=== PATIENT | male | born 1990 | race Caucasian/White ===

== ENCOUNTER → 2017-01-06 | Outpatient (REF) | LOC: M SMT 13:09 | PROVIDERS: ATTEND Internal Medicine | DX: Z00.00 Encounter for general adult medical examination without abnormal findings (principal) ==

== ENCOUNTER → 2017-01-07 | Outpatient (REF) ==
--- NOTE | 2017-01-07 17:00 | REP ---
Clinical: Pain. Technique: AP, lateral, bilateral oblique views of the right foot. Findings: Lateral view best demonstrates severe pes planus with underlying soft tissue swelling. No acute fracture or dislocation. Impression: Marked pes planus with soft tissue swelling. Signed by Kenneth Helms MD 01/07/2017 04:52 P
--- NOTE | 2017-01-07 17:05 | REP ---
Clinical: Pain and disability. Comparison: 08/03/2005 Technique: AP, lateral, coned-down views. Findings: Alignment and lordosis maintained. No acute fracture / compression injury or subluxation is appreciated. Spina bifida occulta at S1 noted and represents normal variant. Impression: Essentially normal examination. Congenital spina bifida occulta at S1. Signed by Kenneth Helms MD 01/07/2017 04:56 P
== END ==
LOC: M SMT 13:22
PROVIDERS: ATTEND Internal Medicine
DX: Z02.71 Encounter for disability determination (principal)

== ENCOUNTER → 2017-10-04 | Outpatient (CLI) | payer OTHER ==
[2017-10-04 17:16] LABS: BASO # 0.1 10^3/uL (0.0-0.2); BASO % 0.9 % (0.0-1.0); EOS # 0.6 10^3/uL (0.0-0.50); IMMATURE GRANULOCYTE % 0.7 % (0-0); LYMPH # 2.5 10^3/uL (1.5-6.5); LYMPH % 25.4 % (24.0-44.0); MEAN CORPUSCULAR HEMOGLOBIN 28.9 pg (27.0-33.0); MEAN CORPUSCULAR HGB CONC 33.3 g/dl (32.0-36.5); MONO # 0.7 10^3/uL (0.0-0.8); MONO % 7.7 % (0.0-5.0); NEUTROPHILS # 5.7 10^3/uL (1.8-7.7); NEUTROPHILS % 59.3 % (36.0-66.0); PLATELET COUNT, AUTOMATED 260 10^3/uL (150-450); RED CELL DISTRIBUTION WIDTH 12.8 % (11.5-14.5); WHITE BLOOD COUNT 9.7 10^3/uL (4.0-10.0)
[2017-10-04 17:35] LABS: FREE T4 1.18 NG/DL (0.76-1.46)
== END ==
LOC: M WUC 15:16
PROVIDERS: ATTEND Emergency Medicine
DX: J30.9 Allergic rhinitis, unspecified (principal); E03.9 Hypothyroidism, unspecified

== ENCOUNTER 2018-01-27 08:47 | Emergency (ER) | payer OTHER | END 2018-01-27 09:47 | disposition home or self-care (01) | LOC: M ED 08:47 | DX: Z04.1 Encounter for examination and observation following transport accident (principal); V39 Occupant of three-wheeled motor vehicle injured in other and unspecified transport accidents; Y92.410 Unspecified street and highway as the place of occurrence of the external cause; E03.9 Hypothyroidism, unspecified; Z79.899 Other long term (current) drug therapy; Z79.890 Hormone replacement therapy; F17.210 Nicotine dependence, cigarettes, uncomplicated | CPT/HCPCS: 99283 ==

== ENCOUNTER → 2018-02-18 | Outpatient (CLI) | payer OTHER | LOC: M SLEEP HO 09:36 | DX: G47.30 Sleep apnea, unspecified (principal) | CPT/HCPCS: G0399 ==

== ENCOUNTER → 2018-05-12 | Outpatient (CLI) | payer OTHER ==
[2018-05-12 17:28] LABS: ALBUMIN 3.5 GM/DL (3.2-5.2); ALBUMIN/GLOBULIN RATIO 0.85 (1.00-1.93); ALKALINE PHOSPHATASE 102 U/L (45-117); ALT/SGPT 79 U/L (12-78); ANION GAP 10 MEQ/L (8-16); AST/SGOT 36 U/L (7-37); BILIRUBIN,TOTAL 0.4 MG/DL (0.2-1.0); BLOOD UREA NITROGEN 10 MG/DL (7-18); CALCIUM LEVEL 8.7 MG/DL (8.5-10.1); CARBON DIOXIDE LEVEL 27 MEQ/L (21-32); CHLORIDE LEVEL 107 MEQ/L (98-107); CHOLESTEROL LEVEL 207 MG/DL (<200); CHOLESTEROL RISK RATIO 4.928 (<5); CREATININE FOR GFR 1.06 MG/DL (0.70-1.30); FREE T4 1.11 NG/DL (0.76-1.46); GLOMERULAR FILTRATION RATE > 60.0 (>60); GLUCOSE, FASTING 83 MG/DL (70-100); HDL CHOLESTEROL 42 MG/DL (>40); LDL CHOLESTEROL 132.4 MG/DL (<100); NON-HDL-C 165 MG/DL; POTASSIUM SERUM 4.2 MEQ/L (3.5-5.1); SODIUM LEVEL 144 MEQ/L (136-145); THYROID STIMULATING HORMONE 0.525 uIU/ML (0.358-3.740); TOTAL PROTEIN 7.6 GM/DL (6.4-8.2); TRIGLYCERIDES LEVEL 163 MG/DL (<150)
== END ==
LOC: M WUC 10:53
DX: E03.9 Hypothyroidism, unspecified (principal)
CPT/HCPCS: 84443

== ENCOUNTER → 2018-07-05 | Outpatient (CLI) | payer OTHER ==
[2018-07-05 12:34] LABS: ALBUMIN 3.4 GM/DL (3.2-5.2); ALBUMIN/GLOBULIN RATIO 0.83 (1.00-1.93); ALKALINE PHOSPHATASE 108 U/L (45-117); ALT/SGPT 95 U/L (12-78); ANION GAP 9 MEQ/L (8-16); AST/SGOT 45 U/L (7-37); BILIRUBIN,TOTAL 0.4 MG/DL (0.2-1.0); BLOOD UREA NITROGEN 8 MG/DL (7-18); CALCIUM LEVEL 8.9 MG/DL (8.5-10.1); CARBON DIOXIDE LEVEL 27 MEQ/L (21-32); CHLORIDE LEVEL 106 MEQ/L (98-107); CHOLESTEROL LEVEL 228 MG/DL (<200); CHOLESTEROL RISK RATIO 6.909 (<5); CREATININE FOR GFR 0.99 MG/DL (0.70-1.30); FREE T4 1.12 NG/DL (0.76-1.46); GLOMERULAR FILTRATION RATE > 60.0 (>60); GLUCOSE, FASTING 87 MG/DL (70-100); HDL CHOLESTEROL 33 MG/DL (>40); LDL CHOLESTEROL 120.6 MG/DL (<100); NON-HDL-C 195 MG/DL; SODIUM LEVEL 142 MEQ/L (136-145); TOTAL PROTEIN 7.5 GM/DL (6.4-8.2); TRIGLYCERIDES LEVEL 372 MG/DL (<150)
== END ==
LOC: M WUC 08:37
DX: E03.9 Hypothyroidism, unspecified (principal); E66.3 Overweight
CPT/HCPCS: 84443

== ENCOUNTER → 2018-10-19 | Outpatient (REF) | LOC: M SMT 10:01 | DX: Z00.00 Encounter for general adult medical examination without abnormal findings (principal) ==

== ENCOUNTER → 2018-11-18 | Outpatient (CLI) | payer OTHER ==
[~2018-11-18] MED LIST: CLAR10CA3 PO; CLEO300C2 PO; IBUP-1022 PO; LIDO1SOL7 SSP; NORCOTAB PO; SYNT100T PO; TYLE325T5 PO
--- NOTE | 2018-11-22 14:14 | SLEEPCENT ---
DATE OF PROCEDURE: 11/18/2018 ORDERED BY: Cari Berry Nocturnal polysomnography was performed for the titration of pressure therapy in this patient with a clinical diagnosis of obstructive sleep apnea syndrome confirmed by home testing revealing a respiratory event index of 16. For testing, a ResMed AirFit F20 full face mask was used and 5 cm of water pressure were applied to the circuit and the lights were extinguished. 8 hours and 1 minute of data were reviewed. There were 448 minutes of sleep identified. Sleep latency was normal 11.5 minutes. Rapid eye movement (REM) latency was mildly prolonged at 117 minutes. Sleep architecture was good with evidence of REM rebound. Overall sleep efficiency was 94.3%. The patient's electrocardiogram showed a sinus rhythm with an average heart rate of 64 beats per minute. Electroencephalogram (EEG) showed normal waveforms for awake and sleep. Respiratory events were fully palliated with C-PAP at a pressure +12. Remaining measures of sleep physiology were normal. IMPRESSION: Obstructive sleep apnea syndrome (G47.33) RECOMMENDATION: Nightly use of pressure therapy at 12 cm of water.
== END ==
LOC: M SLEEP 20:00
PROVIDERS: ATTEND Nurse Practitioner Adult Health
DX: G47.33 Obstructive sleep apnea (adult) (pediatric) (principal)

== ENCOUNTER 2019-01-23 09:55 | Emergency (ER) | payer OTHER ==
[~2019-01-23] VITALS: Ht 165.1 cm; Wt 102.3 kg
[2019-01-23] MEDS ORDERED: AZEL0.05 OP (10:08)
[2019-01-23] MEDS ORDERED: CETI10TA (10:08)
[2019-01-23] MEDS ORDERED: GI COCKTAIL 50ML BTL(HYOSCYAMINE/MAALOX/LIDOCAINE VISCOUS)(1:3:1) PO ONE (10:30)
[2019-01-23] MEDS: GASTROGRAFIN SOLUTION 30ML PO SCH ×2 (10:56→11:30)
[2019-01-23 11:05] LABS: BASO # 0.1 10^3/uL (0.0-0.2); BASO % 0.7 % (0.0-1.0); EOS # 0.2 10^3/uL (0.0-0.50); EOS % 1.4 % (0.0-3.0); HEMATOCRIT 40.7 % (42.0-52.0); HEMOGLOBIN 13.3 g/dl (13.5-17.5); LYMPH # 1.7 10^3/uL (1.5-4.5); MEAN CORPUSCULAR HEMOGLOBIN 28.4 pg (27.0-33.0); MEAN CORPUSCULAR HGB CONC 32.7 g/dl (32.0-36.5); MEAN CORPUSCULAR VOLUME 86.8 fl (80.0-96.0); MONO # 0.6 10^3/uL (0.0-0.8); MONO % 4.6 % (0.0-5.0); NEUTROPHILS # 9.7 10^3/uL (1.8-7.7); NEUTROPHILS % 78.5 % (36.0-66.0); PLATELET COUNT, AUTOMATED 280 10^3/uL (150-450); RED BLOOD COUNT 4.69 10^6/uL (4.30-6.10); WHITE BLOOD COUNT 12.3 10^3/uL (4.0-10.0)
[2019-01-23 11:37] LABS: ALBUMIN 4.1 GM/DL (3.2-5.2); ALT/SGPT 71 U/L (12-78); AMYLASE 45 U/L (25-115); BILIRUBIN,DIRECT 0.1 MG/DL (0.0-0.2); BILIRUBIN,TOTAL 0.3 MG/DL (0.2-1.0); BLOOD UREA NITROGEN 12 MG/DL (7-18); CALCIUM LEVEL 9.5 MG/DL (8.5-10.1); CARBON DIOXIDE LEVEL 29 MEQ/L (21-32); CHLORIDE LEVEL 105 MEQ/L (98-107); CK-MB VALUE MASS < 1.0 NG/ML (<3.6); CPK CREATINE PHOSPHOKINASE 255 U/L (39-308); CREATININE FOR GFR 1.08 MG/DL (0.70-1.30); GLOMERULAR FILTRATION RATE > 60.0 (>60); GLUCOSE, FASTING 105 MG/DL (70-100); LIPASE 286 U/L (73-393); MB/CK RELATIVE INDEX 0.39 (< OR =4); POTASSIUM SERUM 4.5 MEQ/L (3.5-5.1); SODIUM LEVEL 139 MEQ/L (136-145); TOTAL PROTEIN 8.1 GM/DL (6.4-8.2); TROPONIN I < 0.02 NG/ML (< 0.10)
[2019-01-23] MEDS ORDERED: ISOVUE-370 76% 100ML VIAL (Q9967) As Ordered ONE (12:20)
[2019-01-23] MEDS ORDERED: KETOROLAC 30 MG/ML VIAL (J1885) IV ONE (13:30)
--- NOTE | 2019-01-23 14:04 | REP ---
CT ABDOMEN AND PELVIS WITH IV AND ORAL CONTRAST: 01/23/2019. Technique: Bolus of 100 mL Isovue 370 scanning through the abdomen pelvis with coronal and sagittal reconstructions. Oral contrast per our CT protocol given by mouth. Clinical history: Upper abdominal pain. Findings: CT abdomen: No prior study. The lung bases were clear. Heart not enlarged. No pericardial thickening or effusion and no hiatal hernia. I see no hepatosplenomegaly, focal hepatic or splenic lesion nor intrahepatic biliary dilatation. I suspect there may be some fatty infiltration of the liver, however. The gallbladder without calcified stone or mass. Small bowel loops contrast filled without abnormal dilatation, air-fluid levels, wall thickening or mass. The aorta is without aneurysm. There is no periaortic, retroperitoneal or mesenteric pathologic sized adenopathy. Pancreas was intact. The abdominal portion of colon is normal. There is a retrocecal appendix which is normal without inflammatory change. Abdominal portion of the colon shows stool and gas in the right colon and transverse sections but the left colon collapsed and without acute finding. Stomach with some retained food and oral contrast. The bone windows show lumbar and lower thoracic spine along with posterior elements without acute finding. There is some minor degenerative changes at L5-S1. Ribs intact. CT pelvis: The sacrum, SI joints, pelvis, hips and ischia were unremarkable. The oral contrast reaches some loops of ileum but no contrast in the terminal ileum or colon. There is no ascites, perforation or free air. Bladder without wall thickening, mass or stone. No distal ureteral dilatation or stone. I see no ventral or inguinal hernias. No pathologic sized inguinal adenopathy. Impression: 1. Solid organs in the upper abdomen without mass or focal lesion. There may be some fatty infiltration of the liver without enlargement. 2. No renal, ureteral or bladder stone, hydronephrosis, perinephric fluid or other acute finding. No calcified gallstones. 3. No hiatal hernia, signs of reflux, bowel obstruction or other acute bowel findings. 4. Retrocecal appendix appears intact without acute inflammatory change. No colitis, diverticulitis, stricture, mass or other acute finding in the colon. Small bowel loops unremarkable. 5. Bony abdomen, pelvis and lower ribs grossly intact. 6. Lung bases clear. No cardiomegaly or hiatal hernia. Electronically Signed by Dino Horner MD 01/23/2019 07:53 P
[2019-01-23 16:09] LABS: CPK CREATINE PHOSPHOKINASE 227 U/L (39-308); MB/CK RELATIVE INDEX 0.48 (< OR =4); TROPONIN I < 0.02 NG/ML (< 0.10)
--- NOTE | 2019-01-23 16:09 | REP ---
GALLBLADDER ULTRASOUND: 01/23/2019. Comparison: CT today. Clinical history: Right upper quadrant abdominal pain. Findings: Liver is homogeneous but diffusely hyperechoic consistent with fatty infiltration. No hepatic mass, intrahepatic biliary dilatation nor adjacent ascites. Gallbladder shows a solitary 2.1 centimeter, non shadowing stone in the neck which is not mobile despite a variety of positions and maneuvers. Gallbladder wall thickness 1.9 mm is normal. No pericholecystic fluid, mass, sonographic Gregory sign or other acute finding. Pancreas is limited evaluation due to gas shadowing. The common duct is 4.4 mm without a common duct stone. Right kidney 7.5 x 5.4 x 5.4 cm without stone, mass, cyst or hydronephrosis. Impression: 1. Cholelithiasis with solitary 2.1 cm stone visible in the gallbladder neck, immobile. No wall thickening, pericholecystic fluid or sonographic Gregory sign. 2. Common duct 4.4 mm and normal. 3. Diffuse fatty infiltration liver. No biliary dilatation. 4. Limited evaluation of pancreas unremarkable. Right kidney also unremarkable. Electronically Signed by Dino Horner MD 01/23/2019 07:58 P
[2019-01-23] MEDS ORDERED: KETO10TAB PO (16:15)
[2019-01-23 16:26] VITALS: BP 145/79
--- NOTE | 2019-01-23 21:55 | ECGEPIP ---
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
== END 2019-01-23 16:28 | disposition home or self-care (01) ==
LOC: M ED 09:55
DX: K80.70 Calculus of gallbladder and bile duct without cholecystitis without obstruction (principal); R00.1 Bradycardia, unspecified; K76.0 Fatty (change of) liver, not elsewhere classified; M51.37 Other intervertebral disc degeneration, lumbosacral region; E03.9 Hypothyroidism, unspecified; F17.210 Nicotine dependence, cigarettes, uncomplicated; Z82.49 Family history of ischemic heart disease and other diseases of the circulatory system; Z79.890 Hormone replacement therapy; Z79.899 Other long term (current) drug therapy
CPT/HCPCS: 36415; 74177; 76705; 80048; 80076; 81001; 82150; 82550; 82553; 83605; 83690; 85025; 93005; 96374; 99284; J1885; Q9963; Q9967

== ENCOUNTER → 2019-02-14 | Outpatient (REF) | payer OTHER, MEDICAID ==
[~2019-02-14] MED LIST changes: +AZEL0.05 OP; +CETI10TA; +KETO10TAB PO
[2019-02-14 17:39] LABS: ALBUMIN 4.1 GM/DL (3.2-5.2); ALT/SGPT 76 U/L (12-78); BILIRUBIN,TOTAL 0.5 MG/DL (0.2-1.0); BLOOD UREA NITROGEN 9 MG/DL (7-18); CARBON DIOXIDE LEVEL 28 MEQ/L (21-32); CHLORIDE LEVEL 106 MEQ/L (98-107); CHOLESTEROL LEVEL 212 MG/DL (<200); CHOLESTEROL RISK RATIO 5.729 (<5); CREATININE FOR GFR 1.13 MG/DL (0.70-1.30); FREE T4 1.22 NG/DL (0.76-1.46); GLOMERULAR FILTRATION RATE > 60.0 (>60); GLUCOSE, FASTING 83 MG/DL (70-100); HDL CHOLESTEROL 37 MG/DL (>40); LDL CHOLESTEROL 130 MG/DL (<100); NON-HDL-C 175 MG/DL; POTASSIUM SERUM 4.1 MEQ/L (3.5-5.1); SODIUM LEVEL 140 MEQ/L (136-145); TOTAL 25(OH) VITAMIN D 20.4 NG/ML (30.0-100.0); TRIGLYCERIDES LEVEL 223 MG/DL (<150)
[2019-02-14 18:00] LABS: BASO # 0.1 10^3/uL (0.0-0.2); EOS # 0.5 10^3/uL (0.0-0.50); EOS % 5.7 % (0.0-3.0); HEMATOCRIT 44.9 % (42.0-52.0); HEMOGLOBIN 14.3 g/dl (13.5-17.5); LYMPH # 2.4 10^3/uL (1.5-4.5); LYMPH % 29.5 % (24.0-44.0); MEAN CORPUSCULAR HEMOGLOBIN 27.3 pg (27.0-33.0); MEAN CORPUSCULAR HGB CONC 31.8 g/dl (32.0-36.5); MEAN CORPUSCULAR VOLUME 85.7 fl (80.0-96.0); MONO # 0.5 10^3/uL (0.0-0.8); MONO % 5.8 % (0.0-5.0); NEUTROPHILS # 4.6 10^3/uL (1.8-7.7); NEUTROPHILS % 57.3 % (36.0-66.0); PLATELET COUNT, AUTOMATED 279 10^3/uL (150-450); RED BLOOD COUNT 5.24 10^6/uL (4.30-6.10); WHITE BLOOD COUNT 8.1 10^3/uL (4.0-10.0)
[2019-02-14 19:13] LABS: HEMOGLOBIN A1c 5.8 %
[2019-02-17 00:06] LABS: Lyme Disease IgG/IgM Antibodie <0.91 ISR (0.00-0.90); Lyme Disease IgM Ab Quantitati <0.80 index (0.00-0.79)
== END ==
LOC: M LAB REF 16:49
PROVIDERS: ATTEND Family Medicine
DX: Z13.228 Encounter for screening for other metabolic disorders (principal); Z00.01 Encounter for general adult medical examination with abnormal findings

== ENCOUNTER → 2019-05-16 | Outpatient (REF) | payer OTHER, MEDICAID ==
[~2019-05-16] MED LIST changes: +HYDR-3715 PO; -LIDO1SOL7 SSP; +LIDO1SOL8 SSP; -NORCOTAB PO
[2019-05-16 15:50] LABS: BASO # 0.1 10^3/uL (0.0-0.2); BASO % 1.1 % (0.0-1.0); EOS # 0.3 10^3/uL (0.0-0.50); EOS % 3.6 % (0.0-3.0); HEMATOCRIT 44.5 % (42.0-52.0); HEMOGLOBIN 14.3 g/dl (13.5-17.5); LYMPH # 2.3 10^3/uL (1.5-4.5); LYMPH % 30.6 % (24.0-44.0); MEAN CORPUSCULAR HEMOGLOBIN 27.3 pg (27.0-33.0); MEAN CORPUSCULAR HGB CONC 32.1 g/dl (32.0-36.5); MEAN CORPUSCULAR VOLUME 85.1 fl (80.0-96.0); MONO # 0.6 10^3/uL (0.0-0.8); MONO % 7.7 % (0.0-5.0); NEUTROPHILS # 4.3 10^3/uL (1.8-7.7); NEUTROPHILS % 56.3 % (36.0-66.0); PLATELET COUNT, AUTOMATED 223 10^3/uL (150-450); RED BLOOD COUNT 5.23 10^6/uL (4.30-6.10); WHITE BLOOD COUNT 7.6 10^3/uL (4.0-10.0)
[2019-05-16 15:59] LABS: ALBUMIN 3.8 GM/DL (3.2-5.2); ALT/SGPT 42 U/L (12-78); BILIRUBIN,TOTAL 0.7 MG/DL (0.2-1.0); BLOOD UREA NITROGEN 13 MG/DL (7-18); CALCIUM LEVEL 8.5 MG/DL (8.5-10.1); CARBON DIOXIDE LEVEL 27 MEQ/L (21-32); CHLORIDE LEVEL 106 MEQ/L (98-107); CHOLESTEROL LEVEL 222 MG/DL (<200); CREATININE FOR GFR 1.07 MG/DL (0.70-1.30); FREE T4 1.21 NG/DL (0.76-1.46); GLOMERULAR FILTRATION RATE > 60.0 (>60); GLUCOSE, FASTING 83 MG/DL (70-100); HDL CHOLESTEROL 40 MG/DL (>40); LDL CHOLESTEROL 144 MG/DL (<100); NON-HDL-C 182 MG/DL; POTASSIUM SERUM 4.3 MEQ/L (3.5-5.1); SODIUM LEVEL 140 MEQ/L (136-145); THYROID STIMULATING HORMONE 0.551 uIU/ML (0.358-3.740); TOTAL PROTEIN 7.9 GM/DL (6.4-8.2); TRIGLYCERIDES LEVEL 189 MG/DL (<150)
[2019-05-16 16:04] LABS: HEMOGLOBIN A1c 6.2 %
[2019-05-20 00:08] LABS: Lyme Disease IgG/IgM Antibodie <0.91 ISR (0.00-0.90); Lyme Disease IgM Ab Quantitati <0.80 index (0.00-0.79)
== END ==
LOC: M LAB REF 15:19
PROVIDERS: ATTEND Family Medicine
DX: Z00.01 Encounter for general adult medical examination with abnormal findings (principal); Z13.228 Encounter for screening for other metabolic disorders

== ENCOUNTER 2020-01-08 10:59 | Emergency (ER) | payer MEDICAID, OTHER ==
[~2020-01-08] VITALS: Ht 165.1 cm; Wt 108.0 kg
[~2020-01-08 10:59] MED LIST changes: -LIDO1SOL8 SSP; +LIDO2SOL17 SSP
[2020-01-08] MEDS ORDERED: ESCI20TA (11:29)
[2020-01-08] MEDS ORDERED: ATOR1TAB19 (11:29)
[2020-01-08] MEDS ORDERED: METF-791 (11:29)
--- NOTE | 2020-01-08 12:03 | REP ---
Right middle finger four views: There is soft tissue edema and soft tissue injury at the distal tip. There is a nondisplaced fracture of the distal tuft of the distal phalange. There are no radiopaque foreign bodies. Electronically Signed by Mario Wayne MD 01/08/2020 11:54 A
[2020-01-08] MEDS ORDERED: LIDOCAINE 1% MDV 20ML VIAL SC ONE (13:15)
[2020-01-08] MEDS ORDERED: ADACEL/BOOSTRIX VACCINE (DIPHTH/PERTUSS/ACELL/TETANUS)0.5ML SYR (90715) IM ONE (13:15)
[2020-01-08] MEDS ORDERED: KEFL500C17 PO (14:33)
[2020-01-08 14:42] VITALS: BP 135/95
[2020-01-09] MEDS ORDERED: CEPH500C (18:13)
[2020-01-09] MEDS ORDERED: LEVO100T5 (18:13)
== END 2020-01-08 14:44 | disposition home or self-care (01) ==
LOC: M ED 10:59
DX: S62.662B Nondisplaced fracture of distal phalanx of right middle finger, initial encounter for open fracture (principal); S61.312A Laceration without foreign body of right middle finger with damage to nail, initial encounter; S67.192A Crushing injury of right middle finger, initial encounter; Y92.89 Other specified places as the place of occurrence of the external cause; Y99.0 Civilian activity done for income or pay; R73.03 Prediabetes; F17.210 Nicotine dependence, cigarettes, uncomplicated; Z79.899 Other long term (current) drug therapy; Z23 Encounter for immunization

== ENCOUNTER 2020-01-09 18:06 | Emergency (ER) | payer OTHER ==
[~2020-01-09] VITALS: Ht 165.1 cm; Wt 106.8 kg
[~2020-01-09 18:06] MED LIST changes: +ATOR1TAB19; +ESCI20TA; +KEFL500C17 PO; +METF-791
[2020-01-09] MEDS ORDERED: CEPH500C (18:13)
[2020-01-09] MEDS ORDERED: LEVO100T5 (18:13)
[2020-01-09 20:50] VITALS: BP 154/94
== END 2020-01-09 20:51 | disposition home or self-care (01) ==
LOC: M ED 18:06
DX: S61.312A Laceration without foreign body of right middle finger with damage to nail, initial encounter (principal); S67.192A Crushing injury of right middle finger, initial encounter; Y92.89 Other specified places as the place of occurrence of the external cause; E78.5 Hyperlipidemia, unspecified; E07.9 Disorder of thyroid, unspecified; Z79.899 Other long term (current) drug therapy; Z79.2 Long term (current) use of antibiotics

== ENCOUNTER 2020-01-14 09:57 | Emergency (ER) | payer OTHER ==
[~2020-01-14] VITALS: Ht 165.1 cm; Wt 95.5 kg
[~2020-01-14 09:57] MED LIST changes: +CEPH500C; +LEVO100T5
[2020-01-14] MEDS ORDERED: NEOSOI EXT (11:11)
[2020-01-14] MEDS ORDERED: NEOSPORIN TOP OINT 15GM TOP ONE (11:15)
[2020-01-14 11:23] VITALS: BP 146/82
== END 2020-01-14 11:26 | disposition home or self-care (01) ==
LOC: M ED 09:57
DX: Z48.02 Encounter for removal of sutures (principal); E11.9 Type 2 diabetes mellitus without complications; E03.9 Hypothyroidism, unspecified; J45.909 Unspecified asthma, uncomplicated; F17.200 Nicotine dependence, unspecified, uncomplicated; Z79.899 Other long term (current) drug therapy

== ENCOUNTER → 2020-03-08 | Outpatient (REF) | payer MEDICAID ==
[~2020-03-08] MED LIST changes: +NEOSOI EXT
[2020-03-08 16:31] LABS: BASO # 0.1 10^3/uL (0.0-0.2); BASO % 0.8 % (0.0-1.0); EOS # 0.5 10^3/uL (0.0-0.5); HEMATOCRIT 46.1 % (42.0-52.0); HEMOGLOBIN 15.1 g/dl (13.5-17.5); LYMPH # 3.1 10^3/uL (1.5-5.0); LYMPH % 32.2 % (24.0-44.0); MEAN CORPUSCULAR HEMOGLOBIN 28.8 pg (27.0-33.0); MEAN CORPUSCULAR HGB CONC 32.8 g/dl (32.0-36.5); MONO # 0.7 10^3/uL (0.0-0.8); NEUTROPHILS # 5.1 10^3/uL (1.5-8.5); NEUTROPHILS % 54.1 % (36.0-66.0); PLATELET COUNT, AUTOMATED 205 10^3/uL (150-450); RED BLOOD COUNT 5.24 10^6/uL (4.30-6.10); WHITE BLOOD COUNT 9.5 10^3/uL (4.0-10.0)
[2020-03-08 16:45] LABS: ALBUMIN 3.9 GM/DL (3.2-5.2); ALT/SGPT 98 U/L (12-78); BILIRUBIN,TOTAL 0.5 MG/DL (0.2-1.0); BLOOD UREA NITROGEN 12 MG/DL (7-18); CALCIUM LEVEL 9.2 MG/DL (8.5-10.1); CARBON DIOXIDE LEVEL 29 MEQ/L (21-32); CHLORIDE LEVEL 102 MEQ/L (98-107); CHOLESTEROL LEVEL 185 MG/DL (<200); CHOLESTEROL RISK RATIO 4.512 (<5); CREATININE FOR GFR 1.07 MG/DL (0.70-1.30); FREE T4 1.26 NG/DL (0.76-1.46); GLOMERULAR FILTRATION RATE > 60.0 (>60); GLUCOSE, FASTING 83 MG/DL (70-100); HDL CHOLESTEROL 41 MG/DL (>40); LDL CHOLESTEROL 97 MG/DL (<100); NON-HDL-C 144 MG/DL; SODIUM LEVEL 138 MEQ/L (136-145); TOTAL PROTEIN 7.9 GM/DL (6.4-8.2); TRIGLYCERIDES LEVEL 233 MG/DL (<150)
[2020-03-08 16:46] LABS: TOTAL 25(OH) VITAMIN D 23.7 NG/ML (30.0-100.0); VITAMIN B12 LEVEL 483 PG/ML
[2020-03-08 16:47] LABS: FOLATE 9.5 NG/ML; HEMOGLOBIN A1c 5.9 %
== END ==
LOC: M LAB REF 16:03
PROVIDERS: ATTEND Nurse Practitioner Family
DX: R03.0 Elevated blood-pressure reading, without diagnosis of hypertension (principal); Z13.9 Encounter for screening, unspecified; R73.03 Prediabetes; E78.5 Hyperlipidemia, unspecified

== ENCOUNTER → 2020-06-26 | Outpatient (REF) | payer OTHER, MEDICAID ==
[~2020-06-26] MED LIST changes: -METF-791; +METF-838
[2020-07-27 10:23] LABS: BASO # 0.1 10^3/uL (0.0-0.2); BASO % 0.7 % (0.0-1.0); EOS # 0.3 10^3/uL (0.0-0.5); EOS % 3.4 % (0.0-3.0); HEMATOCRIT 43.8 % (42.0-52.0); HEMOGLOBIN 13.9 g/dl (13.5-17.5); LYMPH # 2.3 10^3/uL (1.5-5.0); LYMPH % 28.3 % (24.0-44.0); MEAN CORPUSCULAR HEMOGLOBIN 28.4 pg (27.0-33.0); MEAN CORPUSCULAR HGB CONC 31.7 g/dl (32.0-36.5); MEAN CORPUSCULAR VOLUME 89.6 fl (80.0-96.0); MONO # 0.6 10^3/uL (0.0-0.8); NEUTROPHILS # 4.9 10^3/uL (1.5-8.5); NEUTROPHILS % 59.5 % (36.0-66.0); PLATELET COUNT, AUTOMATED 218 10^3/uL (150-450); RED BLOOD COUNT 4.89 10^6/uL (4.30-6.10); WHITE BLOOD COUNT 8.2 10^3/uL (4.0-10.0)
[2020-07-27 11:07] LABS: APPEARANCE, URINE HAZY (CLEAR); BACTERIA, URINE AUTO NEGATIVE (NEGATIVE); BILIRUBIN, URINE AUTO NEGATIVE (NEGATIVE); BLOOD, URINE BLOOD NEGATIVE (NEGATIVE); COLOR, URINE YELLOW (YELLOW); GLUCOSE, URINE (UA) AUTO NEGATIVE (NEGATIVE); KETONE, URINE AUTO NEGATIVE (NEGATIVE); LEUKOCYTE ESTERASE, URINE AUTO NEGATIVE (NEGATIVE); MUCUS, URINE LARGE (NEGATIVE); NITRITE, URINE AUTO NEGATIVE (NEGATIVE); PROTEIN, URINE AUTO 2+ mg/dL (NEGATIVE); RBC, URINE AUTO 1 /HPF (0-3); SPECIFIC GRAVITY URINE AUTO 1.025 (1.002-1.035); SQUAMOUS EPITHELIAL CELL UR AU 0 /HPF (0-6); UROBILINOGEN, URINE AUTO 0.2 mg/dL (0.0-2.0); WBC, URINE AUTO 1 /HPF (0-3)
[2020-08-09 22:02] LABS: ALBUMIN 3.5 GM/DL (3.2-5.2); ALT/SGPT 122 U/L (12-78); BILIRUBIN,TOTAL 0.6 MG/DL (0.2-1.0); BLOOD UREA NITROGEN 7 MG/DL (7-18); CALCIUM LEVEL 8.5 MG/DL (8.5-10.1); CARBON DIOXIDE LEVEL 28 MEQ/L (21-32); CHLORIDE LEVEL 107 MEQ/L (98-107); CHOLESTEROL LEVEL 167 MG/DL (<200); CHOLESTEROL RISK RATIO 4.638 (<5); CREATININE FOR GFR 1.12 MG/DL (0.70-1.30); FREE T4 1.04 NG/DL (0.76-1.46); GLOMERULAR FILTRATION RATE > 60.0 (>60); GLUCOSE, FASTING 87 MG/DL (70-100); HDL CHOLESTEROL 36 MG/DL (>40); HEMOGLOBIN A1c 5.8 %; LDL CHOLESTEROL 86 MG/DL (<100); NON-HDL-C 131 MG/DL; SODIUM LEVEL 141 MEQ/L (136-145); TOTAL 25(OH) VITAMIN D 23.8 NG/ML (30.0-100.0); TOTAL PROTEIN 7.3 GM/DL (6.4-8.2); TRIGLYCERIDES LEVEL 224 MG/DL (<150)
== END ==
LOC: M LAB REF 15:23
PROVIDERS: ATTEND Nurse Practitioner Family
DX: Z13.9 Encounter for screening, unspecified (principal); R74.8 Abnormal levels of other serum enzymes; F17.200 Nicotine dependence, unspecified, uncomplicated; R03.0 Elevated blood-pressure reading, without diagnosis of hypertension; E55.9 Vitamin D deficiency, unspecified; R73.03 Prediabetes; E78.5 Hyperlipidemia, unspecified; F41.9 Anxiety disorder, unspecified

== ENCOUNTER → 2020-08-02 | Outpatient (REF) | payer OTHER, MEDICAID ==
[2020-08-02 13:12] LABS: ALBUMIN 3.9 GM/DL (3.2-5.2); ALT/SGPT 107 U/L (12-78); BILIRUBIN,TOTAL 0.5 MG/DL (0.2-1.0); BLOOD UREA NITROGEN 11 MG/DL (7-18); CALCIUM LEVEL 8.8 MG/DL (8.5-10.1); CARBON DIOXIDE LEVEL 26 MEQ/L (21-32); CHLORIDE LEVEL 104 MEQ/L (98-107); CHOLESTEROL LEVEL 214 MG/DL (<200); CHOLESTEROL RISK RATIO 4.863 (<5); CREATININE FOR GFR 1.13 MG/DL (0.70-1.30); GLOMERULAR FILTRATION RATE > 60.0 (>60); GLUCOSE, FASTING 97 MG/DL (70-100); HDL CHOLESTEROL 44 MG/DL (>40); LDL CHOLESTEROL 128 MG/DL (<100); NON-HDL-C 170 MG/DL; POTASSIUM SERUM 3.8 MEQ/L (3.5-5.1); SODIUM LEVEL 137 MEQ/L (136-145); TOTAL PROTEIN 8.1 GM/DL (6.4-8.2); TRIGLYCERIDES LEVEL 209 MG/DL (<150)
== END ==
LOC: M LAB REF 12:06
PROVIDERS: ATTEND Physician Assistant
DX: R74.8 Abnormal levels of other serum enzymes (principal); E78.5 Hyperlipidemia, unspecified

== ENCOUNTER → 2020-11-19 | Outpatient (CLI) | payer OTHER, MEDICAID ==
[2020-11-19 13:15] LABS: HEMATOCRIT 45.1 % (42.0-52.0); MEAN CORPUSCULAR HEMOGLOBIN 27.3 pg (27.0-33.0); MEAN CORPUSCULAR VOLUME 88.1 fl (80.0-96.0); PLATELET COUNT, AUTOMATED 230 10^3/uL (150-450); RED BLOOD COUNT 5.12 10^6/uL (4.30-6.10)
[2020-11-19 13:43] LABS: ALBUMIN 3.7 GM/DL (3.2-5.2); ALT/SGPT 85 U/L (12-78); BILIRUBIN,TOTAL 0.5 MG/DL (0.2-1.0); BLOOD UREA NITROGEN 8 MG/DL (7-18); CARBON DIOXIDE LEVEL 27 MEQ/L (21-32); CHLORIDE LEVEL 103 MEQ/L (98-107); CHOLESTEROL LEVEL 235 MG/DL (<200); CHOLESTEROL RISK RATIO 6.184 (<5); CREATININE FOR GFR 1.29 MG/DL (0.70-1.30); GLOMERULAR FILTRATION RATE > 60.0 (>60); GLUCOSE, FASTING 96 MG/DL (70-100); HDL CHOLESTEROL 38 MG/DL (>40); LDL CHOLESTEROL 159 MG/DL (<100); NON-HDL-C 197 MG/DL; POTASSIUM SERUM 4.4 MEQ/L (3.5-5.1); SODIUM LEVEL 139 MEQ/L (136-145); TOTAL PROTEIN 7.7 GM/DL (6.4-8.2); TRIGLYCERIDES LEVEL 190 MG/DL (<150)
[2020-11-19 13:53] LABS: TOTAL 25(OH) VITAMIN D 16.2 NG/ML (30.0-100.0)
== END ==
LOC: M WUC 09:13
PROVIDERS: ATTEND Physician Assistant
DX: E78.5 Hyperlipidemia, unspecified (principal); R03.0 Elevated blood-pressure reading, without diagnosis of hypertension; E55.9 Vitamin D deficiency, unspecified; E03.9 Hypothyroidism, unspecified

== ENCOUNTER → 2021-04-15 | Outpatient (REF) | payer OTHER, MEDICAID ==
[~2021-04-15] MED LIST changes: -ESCI20TA; +ESCI20TA16
[2021-04-15 18:37] LABS: ALBUMIN 3.7 GM/DL (3.2-5.2); ALT/SGPT 96 U/L (12-78); BILIRUBIN,TOTAL 0.5 MG/DL (0.2-1.0); BLOOD UREA NITROGEN 8 MG/DL (7-18); CALCIUM LEVEL 8.9 MG/DL (8.5-10.1); CARBON DIOXIDE LEVEL 27 MEQ/L (21-32); CHLORIDE LEVEL 104 MEQ/L (98-107); CHOLESTEROL LEVEL 221 MG/DL (<200); CHOLESTEROL RISK RATIO 5.525 (<5); GLOMERULAR FILTRATION RATE > 60.0 (>60); GLUCOSE, FASTING 83 MG/DL (70-100); HDL CHOLESTEROL 40 MG/DL (>40); LDL CHOLESTEROL 138 MG/DL (<100); NON-HDL-C 181 MG/DL; POTASSIUM SERUM 4.6 MEQ/L (3.5-5.1); SODIUM LEVEL 138 MEQ/L (136-145); TOTAL PROTEIN 7.6 GM/DL (6.4-8.2); TRIGLYCERIDES LEVEL 216 MG/DL (<150)
== END ==
LOC: M LAB REF 16:13
PROVIDERS: ATTEND Pediatrics
DX: E78.5 Hyperlipidemia, unspecified (principal)

== ENCOUNTER → 2021-05-09 | Outpatient (CLI) | payer MEDICAID, OTHER ==
--- NOTE | 2021-05-09 09:09 | REP ---
INDICATION: ABN LFT. COMPARISON: Comparison right upper quadrant sonography January 23, 2019. Comparison CT study of the abdomen January 23, 2019.. TECHNIQUE: Transabdominal right upper quadrant sonography. FINDINGS: Scanning through the right upper quadrant of the abdomen demonstrates a normal sized and walled gallbladder containing a large shadowing calculus within its lumen at least 1.6 cm in diameter. The common bile duct is not dilated measuring 0.5 cm in greatest diameter. No focal liver lesion is seen. The liver is somewhat hyperechoic consistent with fatty infiltration. Limited views of pancreas show no abnormality. There is no evidence of ascites or right renal abnormality. The right kidney measures 11.1 by 6.4 x 5.3 cm. No focal liver lesion is seen.. IMPRESSION: Cholelithiasis. Evidence of consistent with fatty infiltration of the liver. Otherwise negative right upper quadrant sonogram. No focal liver lesion seen.. <Electronically signed by Nazario Jenkins > 05/09/21 0905
== END ==
LOC: M RAD 07:16
PROVIDERS: ATTEND Physician Assistant
DX: R94.5 Abnormal results of liver function studies (principal)

== ENCOUNTER → 2021-05-21 | Outpatient (CLI) | payer OTHER ==
[2021-05-21 16:14] LABS: HEMOGLOBIN A1c 5.6 %; THYROID STIMULATING HORMONE 3.38 uIU/ML (0.358-3.740); TOTAL 25(OH) VITAMIN D 22.3 NG/ML (30.0-100.0)
== END ==
LOC: M WUC 11:43
PROVIDERS: ATTEND Physician Assistant
DX: E55.9 Vitamin D deficiency, unspecified (principal); R73.03 Prediabetes; E03.9 Hypothyroidism, unspecified

== ENCOUNTER → 2022-02-06 | Outpatient (CLI) | payer OTHER ==
[~2022-02-06] MED LIST changes: +ATOR1TAB19 PO; +CETI-25 PO; +METF-838 PO; +VITA100093 PO
== END ==
LOC: M LABSMTC 10:42
PROVIDERS: ATTEND Anesthesiology
DX: Z01.812 Encounter for preprocedural laboratory examination (principal); Z20.822 Contact with and (suspected) exposure to COVID-19

== ENCOUNTER 2022-02-11 06:07 | Day surgery (SDC) | payer OTHER ==
[~2022-02-11] VITALS: Ht 165.1 cm; Wt 104.7 kg
[~2022-02-11 06:07] MED LIST changes: +LIDOCAINE 1% MDV 20ML VIAL SQ PRN; +LR 1,000 ML IV ONE; +ceFAZolin SOD 2 GM in IV 1 EA IV ONE
[2022-02-11] MEDS ORDERED: dexameTHASONE 4 MG/ML 1ML VIAL (J1100 PER 1MG) As Ordered ONE (07:05)
[2022-02-11] MEDS ORDERED: BUPIVACAINE HCL 0.25% 30ML VIAL As Ordered ONE (07:05)
[2022-02-11] MEDS ORDERED: LIDOCAINE 1% SDV 30ML VIAL As Ordered ONE (07:05)
[2022-02-11] MEDS ORDERED: KETOROLAC 60MG 2ML VIAL As Ordered ONE (07:44)
[2022-02-11] MEDS ORDERED: LIDOCAINE 2% 100MG/5ML SDV (FOR ANES.) As Ordered ONE (07:44)
[2022-02-11] MEDS ORDERED: ONDANSETRON 4MG/2ML VIAL As Ordered ONE (07:44)
[2022-02-11] MEDS ORDERED: MIDAZOLAM INJ 2MG/2ML VIAL (J2250 PER 1MG) As Ordered ONE (07:44)
[2022-02-11] MEDS ORDERED: propofoL 200 MG/20 ML VIAL As Ordered ONE (07:44)
[2022-02-11] MEDS ORDERED: ACETAMINOPHEN 1000MG 100ML IV BTL (OFIRMEV) (J0131 PER 10MG) As Ordered ONE (07:44)
[2022-02-11] MEDS ORDERED: fentaNYL 100 MCG/2 ML INJECTION As Ordered ONE (07:44)
[2022-02-11] MEDS ORDERED: OXYC1TAB23 PO (09:21)
[2022-02-11] MEDS ORDERED: PERCOCET 5MG/325MG TAB PO PRN (09:45)
[2022-02-11] MEDS ORDERED: METOCLOPRAMIDE INJ 10MG/2ML VIAL (J2765 PER 1) IV PRN (09:45)
[2022-02-11] MEDS ORDERED: LR 1,000 ML IV SCH (09:45)
[2022-02-11] MEDS ORDERED: ONDANSETRON 4MG/2ML VIAL IV PRN (09:45)
[2022-02-11 09:50] VITALS: BP 128/77
== END 2022-02-11 10:10 | disposition home or self-care (01) ==
LOC: M SDC 06:07
PROVIDERS: ATTEND Podiatrist Foot & Ankle Surgery
DX: M21.862 Other specified acquired deformities of left lower leg (principal); Z87.76 Personal history of (corrected) congenital malformations of integument, limbs and musculoskeletal system; Q66.89 Other specified congenital deformities of feet; R73.03 Prediabetes; E03.9 Hypothyroidism, unspecified; K21.9 Gastro-esophageal reflux disease without esophagitis; M41.9 Scoliosis, unspecified; Q05.9 Spina bifida, unspecified; F41.9 Anxiety disorder, unspecified; F32.9 Major depressive disorder, single episode, unspecified; G47.30 Sleep apnea, unspecified; R06.83 Snoring; Z72.0 Tobacco use; J30.9 Allergic rhinitis, unspecified; Z79.899 Other long term (current) drug therapy; Z79.84 Long term (current) use of oral hypoglycemic drugs
CPT/HCPCS: 28750; 76000; C1713; J0131; J0690; J1100; J1885; J2250; J2405; J3010

== ENCOUNTER → 2022-11-26 | Outpatient (CLI) | payer OTHER ==
[~2022-11-26] MED LIST changes: -LIDOCAINE 1% MDV 20ML VIAL SQ PRN; -LR 1,000 ML IV ONE; +OXYC1TAB23 PO; -ceFAZolin SOD 2 GM in IV 1 EA IV ONE
[2022-11-26 11:17] LABS: HEMATOCRIT 43.8 % (42.0-52.0); HEMOGLOBIN 13.8 g/dl (13.5-17.5); MEAN CORPUSCULAR HEMOGLOBIN 27.8 pg (27.0-33.0); MEAN CORPUSCULAR HGB CONC 31.5 g/dl (32.0-36.5); MEAN CORPUSCULAR VOLUME 88.1 fl (80.0-96.0); PLATELET COUNT, AUTOMATED 225 10^3/uL (150-450); RED BLOOD COUNT 4.97 10^6/uL (4.30-6.10); WHITE BLOOD COUNT 6.7 10^3/uL (4.0-10.0)
[2022-11-26 11:35] LABS: HEMOGLOBIN A1c 5.5 % (4.0-6.0)
[2022-11-26 11:51] LABS: ALBUMIN 3.8 G/DL (3.2-5.2); ALKALINE PHOSPHATASE 113 U/L (46-116); ALT/SGPT 44 U/L (7.0-40); AST/SGOT 32 U/L (<34); BILIRUBIN,TOTAL 0.5 MG/DL (0.3-1.2); BLOOD UREA NITROGEN 8 MG/DL (9-23); CALCIUM LEVEL 8.5 MG/DL (8.5-10.1); CARBON DIOXIDE LEVEL 29 MMOL/L (20-31); CHLORIDE LEVEL 105 MMOL/L (98-107); CHOLESTEROL LEVEL 139 MG/DL (<200); CREATININE FOR GFR 1.01 MG/DL (0.70-1.30); GLOMERULAR FILTRATION RATE > 60.0 (>60); GLUCOSE, FASTING 77 MG/DL (60-100); HDL CHOLESTEROL 28.9 MG/DL (>40); LDL CHOLESTEROL 72.9 MG/DL (<100); NON-HDL-C 110 MG/DL; POTASSIUM SERUM 4.3 MMOL/L (3.5-5.1); SODIUM LEVEL 141 MMOL/L (136-145); TOTAL PROTEIN 7.3 G/DL (5.7-8.2); TRIGLYCERIDES LEVEL 186 MG/DL (<150)
[2022-11-26 11:53] LABS: THYROID STIMULATING HORMONE 6.223 uIU/ML (0.55-4.78)
[2022-11-26 14:39] LABS: TOTAL 25(OH) VITAMIN D 37.3 NG/ML (20.0-100.0)
== END ==
LOC: M WUC 09:53
PROVIDERS: ATTEND Physician Assistant
DX: R94.5 Abnormal results of liver function studies (principal)

== ENCOUNTER → 2023-03-01 | Outpatient (REF) | payer OTHER, MEDICAID ==
[~2023-03-01] MED LIST changes: +LIDO15SO SSP; -LIDO2SOL17 SSP
== END ==
LOC: M LAB REF 16:17
PROVIDERS: ATTEND Physician Assistant
DX: E03.9 Hypothyroidism, unspecified (principal)

== ENCOUNTER → 2023-08-30 | Outpatient (CLI) | payer OTHER ==
[~2023-08-30] MED LIST changes: +DOXY100C3 PO
== END ==
LOC: M EKG 14:18
PROVIDERS: ATTEND Anesthesiology
DX: Z01.818 Encounter for other preprocedural examination (principal)

== ENCOUNTER 2023-09-08 06:01 | Day surgery (SDC) | payer OTHER ==
[~2023-09-08] VITALS: Ht 165.1 cm; Wt 107.7 kg
[~2023-09-08 06:01] MED LIST changes: +ceFAZolin SOD 2 GM in IV 1 EA IV ONE
[2023-09-08] MEDS ORDERED: LIDOCAINE 1% MDV 20ML VIAL As Ordered ONE (06:41)
[2023-09-08] MEDS ORDERED: LIDOCAINE 2% 100MG/5ML SDV (FOR ANES.) As Ordered ONE (06:51)
[2023-09-08] MEDS ORDERED: KETOROLAC 60MG 2ML VIAL As Ordered ONE (06:51)
[2023-09-08] MEDS ORDERED: propofoL 200 MG/20 ML VIAL As Ordered ONE ×3 (06:51→08:51)
[2023-09-08] MEDS ORDERED: ONDANSETRON 4MG 2ML VIAL As Ordered ONE (06:51)
[2023-09-08] MEDS ORDERED: MIDAZOLAM INJ 2MG/2ML VIAL As Ordered ONE (06:57)
[2023-09-08] MEDS ORDERED: fentaNYL 100 MCG/2 ML INJECTION As Ordered ONE (06:57)
[2023-09-08] MEDS ORDERED: INSULIN LISPRO (NovoLOG) PER UNIT SC PRN (07:35)
[2023-09-08] MEDS ORDERED: LR 1,000 ML IV SCH (07:35)
[2023-09-08] MEDS ORDERED: ACETAMINOPHEN 1000MG 100ML IV BAG As Ordered ONE (07:43)
[2023-09-08 11:00] VITALS: BP 132/92; TEMP 96.8; O2SAT 97
== END 2023-09-08 11:10 | disposition home or self-care (01) ==
LOC: M SDC 06:01
PROVIDERS: ATTEND Podiatrist Foot & Ankle Surgery
DX: M20.21 Hallux rigidus, right foot (principal); T84.84XA Pain due to internal orthopedic prosthetic devices, implants and grafts, initial encounter; Y79.2 Prosthetic and other implants, materials and accessory orthopedic devices associated with adverse incidents; E11.9 Type 2 diabetes mellitus without complications; G47.30 Sleep apnea, unspecified; E03.9 Hypothyroidism, unspecified; E78.00 Pure hypercholesterolemia, unspecified; Z79.899 Other long term (current) drug therapy; Z79.890 Hormone replacement therapy; Z79.2 Long term (current) use of antibiotics; Z79.84 Long term (current) use of oral hypoglycemic drugs; F17.210 Nicotine dependence, cigarettes, uncomplicated
CPT/HCPCS: 20680; 28750; 76000; 97116; C1713; C1762; J0131; J0665; J0690; J1100; J1885; J2250; J2405; J3010

== ENCOUNTER → 2023-10-20 | Outpatient (REF) | payer OTHER ==
[~2023-10-20] MED LIST changes: -ceFAZolin SOD 2 GM in IV 1 EA IV ONE
[2023-10-20 17:20] LABS: HEMOGLOBIN A1c 5.5 % (4.0-6.0)
[2023-10-20 17:40] LABS: FREE T4 1.42 NG/DL (0.89-1.76); THYROID STIMULATING HORMONE 2.154 uIU/ML (0.55-4.78)
== END ==
LOC: M LAB REF 16:26
PROVIDERS: ATTEND Nurse Practitioner Family
DX: R73.03 Prediabetes (principal)

== ENCOUNTER → 2023-11-23 | Outpatient (CLI) | payer OTHER | LOC: M RAD 07:25 | PROVIDERS: ATTEND Nurse Practitioner Family | DX: M25.561 Pain in right knee (principal) ==

== ENCOUNTER → 2024-06-02 | Outpatient (REF) | payer OTHER ==
[~2024-06-02] MED LIST changes: -LIDO15SO SSP; +LIDO15SO8 SSP
[2024-06-02 17:35] LABS: THYROID STIMULATING HORMONE 1.094 uIU/ML (0.55-4.78); TOTAL 25(OH) VITAMIN D 33.8 NG/ML (20.0-100.0)
[2024-06-02 17:36] LABS: CHOLESTEROL RISK RATIO 4.33 (<5)
[2024-06-02 17:48] LABS: HEMOGLOBIN A1c 5.5 % (4.0-6.0)
== END ==
LOC: M LAB REF 16:14
PROVIDERS: ATTEND Nurse Practitioner Family
DX: E03.9 Hypothyroidism, unspecified (principal); E78.5 Hyperlipidemia, unspecified; E55.9 Vitamin D deficiency, unspecified; R73.03 Prediabetes